=== PATIENT | female | born 1980 | race Caucasian/White ===

== ENCOUNTER 2017-01-31 22:27 | Emergency (ER) | payer OTHER ==
[2017-01-31 22:58] VITALS: RESP 18
[2017-01-31 23:52] LABS: Appearance,Urine Clear (Clear); Bilirubin,Urine Negative (Negative); Glucose,Urine (UA) Negative (Negative); Ketones,Urine Negative (Negative); Leukocyte Esterase,Urine Negative (Negative); Nitrite,Urine Negative (Negative); PH, Urine 5.5 (5.0-8.0); Protein,Urine Trace (Negative); Specific Gravity,Urine 1.026 (1.001-1.035); UA Billing (MACRO vs. MICRO) CHEM; Urobilinogen,Urine <2.0 mg/dL (<2.0)
[2017-02-01] MEDS ORDERED: FLUCONAZOLE 150 MG TAB PO STA (00:07)
--- NOTE | 2017-02-01 00:09 | ED ---
General Adult HPI - General Chief complaint: Urogenital Stated complaint: Female Time Seen by Provider: 01/31/17 23:02 Source: patient, RN notes reviewed, old records reviewed Mode of arrival: ambulatory Limitations: no limitations - History of Present Illness Initial comments: This is a 36-year-old male female to the ER for evaluation. Patient coming in for evaluation of symptoms related to [place] infection. Patient states his itching and some burning in her vaginal area. Denies any chance of STD. Denies bleeding. Denies . No bowel pain no fevers. Patient does have prior history of these infections states this feels similar. - Related Data Home Medications Medication Instructions Recorded Confirmed No Known Home Medications [No 01/31/17 01/31/17 Known Home Medications] Allergies Allergy/AdvReac Type Severity Reaction Status Date / Time No Known Allergies Allergy Verified 01/31/17 22:58 Review of Systems ROS Statement: Those systems with pertinent positive or pertinent negative responses have been documented in the HPI. ROS Other: All systems not noted in ROS Statement are negative. Past Medical History Past Medical History: No Reported History History of Any Multi-Drug Resistant Organisms: None Reported Past Surgical History: No Surgical Hx Reported Past Psychological History: No Psychological Hx Reported Smoking Status: Current every day smoker Past Alcohol Use History: None Reported Past Drug Use History: None Reported General Exam Limitations: no limitations General appearance: alert, in no apparent distress Head exam: Present: atraumatic, normocephalic, normal inspection Eye exam: Present: normal appearance, PERRL, EOMI. Absent: scleral icterus, conjunctival injection, periorbital swelling ENT exam: Present: normal exam, mucous membranes moist Neck exam: Present: normal inspection. Absent: tenderness, meningismus, lymphadenopathy Respiratory exam: Present: normal lung sounds bilaterally. Absent: respiratory distress, wheezes, rales, rhonchi, stridor Cardiovascular Exam: Present: regular rate, normal rhythm, normal heart sounds. Absent: systolic murmur, diastolic murmur, rubs, gallop, clicks GI/Abdominal exam: Present: soft, normal bowel sounds. Absent: distended, tenderness, guarding, rebound, rigid Extremities exam: Present: normal inspection, full ROM, normal capillary refill. Absent: tenderness, pedal edema, joint swelling, calf tenderness Back exam: Present: normal inspection Neurological exam: Present: alert, oriented X3, CN II-XII intact Psychiatric exam: Present: normal affect, normal mood Skin exam: Present: warm, dry, intact, normal color. Absent: rash Course Vital Signs 01/31/17 22:54 Temperature 99.1 F Pulse Rate 68 Respiratory 18 Rate Blood Pressure 116/69 O2 Sat by Pulse 100 Oximetry Medical Decision Making - Medical Decision Making 36 female year for evaluation of vaginal itching, swelling and likely yeast infection, history of same. Patient denying vaginal exam at this time. Urine negative for , we'll culture urine for infection discharged home - Lab Data Lab Results 01/31/17 01/31/17 Range/Units 22:55 22:55 Urine Color Yellow Urine Appearance Clear (Clear) Urine pH 5.5 (5.0-8.0) Ur Specific [place] 1.026 (1.001-1.035) Urine Protein Trace H (Negative) Urine Glucose (UA) Negative (Negative) Urine Ketones Negative (Negative) Urine Blood Negative (Negative) Urine Nitrite Negative (Negative) Urine Bilirubin Negative (Negative) Urine Urobilinogen <2.0 (<2.0) mg/dL Ur Leukocyte Esterase Negative (Negative) Urine HCG, Qual Not Detected (Not Detectd) Disposition Clinical Impression: Vaginitis, Candidiasis of vagina Disposition: HOME SELF-CARE Condition: Good Instructions: Vulvovaginal Candidiasis (ED) Referrals: None,Stated [Primary Care Provider] - 1-2 days
[2017-02-01 00:23] VITALS: BP 120/62; PULSE 72; TEMP 97.8
== END 2017-02-01 00:32 | disposition home or self-care (01) ==
LOC: EC 22:27
DX: B37.3 Candidiasis of vulva and vagina (principal); F17.200 Nicotine dependence, unspecified, uncomplicated
CPT/HCPCS: 81003; 81025; 87086; 87491; 87591; 99284

== ENCOUNTER 2017-09-10 22:40 | Emergency (ER) | payer OTHER ==
[2017-09-10 23:03] VITALS: TEMP 98.5
[2017-09-10] MEDS ORDERED: ACETAMINOPHEN TAB 325 MG TAB PO STA (23:43)
--- NOTE | 2017-09-10 23:46 | ED ---
General Adult HPI - General Chief complaint: Vaginal Bleeding Stated complaint: 11 wk preg and bleeding Time Seen by Provider: 09/10/17 23:29 Source: patient Mode of arrival: ambulatory Limitations: no limitations - History of Present Illness Initial comments: Lucy is a female currently 11 weeks with a single intrauterine confirmed on outpatient ultrasound who presents the emergency department today for evaluation of vaginal bleeding and cramping. Patient reports that yesterday evening she developed some vaginal bleeding, she reports that it is been menstrual like with no large clots or products of conception being passed. Patient reports she has used 3 or 4 pads in the past 24 hours. She states that this evening she began having some cramping which concerned her so she came to the emergency department for evaluation. Patient does report that earlier in the week she had some vaginal discharge but she attributed this to the , she denies any vaginal itching or concern for sexual transmitted infection. Patient denies any dysuria, hematuria or urinary frequency. She denies any history of sexual transmitted infections. She has no history of abnormal Pap smears, ectopic pregnancies in the past. patient ports both of her previous children were delivered vaginally. She's never had any gynecologic surgeries. Patient reports her blood type is B- and that she has required program during her previous vaginal deliveries. Patient does report that her bleeding developed after sexual intercourse with her partner. - Related Data Previous Rx's Medication Instructions Recorded Cephalexin [Keflex] 500 mg PO Q6HR 7 Days #28 cap 09/11/17 Allergies Allergy/AdvReac Type Severity Reaction Status Date / Time No Known Allergies Allergy Verified 09/10/17 23:02 Review of Systems ROS Statement: Those systems with pertinent positive or pertinent negative responses have been documented in the HPI. ROS Other: All systems not noted in ROS Statement are negative. Constitutional: Denies: fever, chills Respiratory: Denies: cough, dyspnea Cardiovascular: Denies: chest pain, palpitations Endocrine: Denies: fatigue Gastrointestinal: Denies: abdominal pain, nausea, vomiting Genitourinary: Reports: discharge. Denies: urgency, dysuria, frequency, hematuria Musculoskeletal: Denies: back pain Skin: Denies: rash, lesions Psychiatric: Denies: anxiety, depression Hematological/Lymphatic: Denies: easy bleeding, easy bruising Past Medical History Past Medical History: No Reported History History of Any Multi-Drug Resistant Organisms: None Reported Past Surgical History: No Surgical Hx Reported Past Psychological History: No Psychological Hx Reported Smoking Status: Current every day smoker Past Alcohol Use History: None Reported Past Drug Use History: None Reported General Exam Limitations: no limitations General appearance: alert, in no apparent distress Head exam: Present: atraumatic Eye exam: Present: normal appearance, PERRL ENT exam: Present: normal exam Neck exam: Present: normal inspection Respiratory exam: Absent: respiratory distress Cardiovascular Exam: Present: regular rate GI/Abdominal exam: Present: soft. Absent: distended, tenderness Extremities exam: Present: normal inspection Back exam: Present: normal inspection Neurological exam: Present: alert, oriented X3 Psychiatric exam: Present: normal affect, normal mood Skin exam: Present: warm, dry, intact, normal color. Absent: pallor Course Vital Signs 09/10/17 23:01 Temperature 98.5 F Pulse Rate 89 Respiratory 20 Rate Blood Pressure 114/72 O2 Sat by Pulse 100 Oximetry Medical Decision Making - Medical Decision Making patient was seen and evaluated, history was obtained from the patient and review of medical record Labs and ultrasound were ordered pelvic exam with a closed cervical os, minimal blood in the vaginal vault. No active vaginal bleeding. After pelvic exam patient reported that she changed her mind and now wanted testing for STI, though she is asymptomatic and does not want treatment. UA with gross contamination, will culture and treat US with single intrauterine with no acute findings. Discussed with patient need for OB follow up, pelvic rest until she is evaluated by her OB Rhogam ordered At the time of sign out patient was resting comfortably, awaiting rhogam. Patient care signed out to Elenita MARTIN who will discharge the patient after Rhogam - Lab Data Result diagrams: 09/11/17 00:19 Lab Results 09/11/17 09/11/17 09/11/17 Range/Units 00:01 00:19 00:19 WBC 12.6 H (3.8-10.6) k/uL RBC 4.54 (3.80-5.40) m/uL Hgb 12.8 (11.4-16.0) gm/dL Hct 39.2 (34.0-46.0) % MCV 86.3 (80.0-100.0) fL MCH 28.3 (25.0-35.0) pg MCHC 32.8 (31.0-37.0) g/dL RDW 12.4 (11.5-15.5) % Plt Count 270 (150-450) k/uL Neutrophils % 72 % Lymphocytes % 21 % Monocytes % 3 % Eosinophils % 2 % Basophils % 0 % Neutrophils # 9.1 H (1.3-7.7) k/uL Lymphocytes # 2.6 (1.0-4.8) k/uL Monocytes # 0.4 (0-1.0) k/uL Eosinophils # 0.3 (0-0.7) k/uL Basophils # 0.0 (0-0.2) k/uL Urine Color Yellow Urine Appearance Cloudy H (Clear) Urine pH 6.0 (5.0-8.0) Ur Specific [place] 1.012 (1.001-1.035) Urine Protein Trace H (Negative) Urine Glucose (UA) Negative (Negative) Urine Ketones Negative (Negative) Urine Blood Moderate H (Negative) Urine Nitrite Negative (Negative) Urine Bilirubin Negative (Negative) Urine Urobilinogen <2.0 (<2.0) mg/dL Ur Leukocyte Esterase Small H (Negative) Urine RBC 2 (0-5) /hpf Urine WBC 7 H (0-5) /hpf Ur Squamous Epith Cells 18 H (0-4) /hpf Amorphous Sediment Rare H (None) /hpf Urine Bacteria Rare H (None) /hpf Hyaline Casts 3 H (0-2) /lpf Urine Mucus Few H (None) /hpf Trichomonas Ag (Rapid) (Negative) Blood Type B Negative Blood Type Recheck B Neg 09/11/17 Range/Units 01:00 WBC (3.8-10.6) k/uL RBC (3.80-5.40) m/uL Hgb (11.4-16.0) gm/dL Hct (34.0-46.0) % MCV (80.0-100.0) fL MCH (25.0-35.0) pg MCHC (31.0-37.0) g/dL RDW (11.5-15.5) % Plt Count (150-450) k/uL Neutrophils % % Lymphocytes % % Monocytes % % Eosinophils % % Basophils % % Neutrophils # (1.3-7.7) k/uL Lymphocytes # (1.0-4.8) k/uL Monocytes # (0-1.0) k/uL Eosinophils # (0-0.7) k/uL Basophils # (0-0.2) k/uL Urine Color Urine Appearance (Clear) Urine pH (5.0-8.0) Ur Specific [place] (1.001-1.035) Urine Protein (Negative) Urine Glucose (UA) (Negative) Urine Ketones (Negative) Urine Blood (Negative) Urine Nitrite (Negative) Urine Bilirubin (Negative) Urine Urobilinogen (<2.0) mg/dL Ur Leukocyte Esterase (Negative) Urine RBC (0-5) /hpf Urine WBC (0-5) /hpf Ur Squamous Epith Cells (0-4) /hpf Amorphous Sediment (None) /hpf Urine Bacteria (None) /hpf Hyaline Casts (0-2) /lpf Urine Mucus (None) /hpf Trichomonas Ag (Rapid) Negative (Negative) Blood Type Blood Type Recheck Disposition Clinical Impression: Vaginal bleeding Disposition: HOME SELF-CARE Condition: Good Instructions: Threatened Miscarriage (ED) Prescriptions: Cephalexin [Keflex] 500 mg PO Q6HR 7 Days #28 cap Referrals: None,Stated [Primary Care Provider] - 1-2 days Roma Guzmán DO [Doctor of Osteopathic Medicine] - 1-2 days
[2017-09-11 00:17] LABS: Amorphous Sediment,Urine Rare /hpf; Appearance,Urine Cloudy (Clear); Bacteria,Urine Rare /hpf; Bilirubin,Urine Negative (Negative); Blood,Urine Moderate (Negative); Color,Urine Yellow; Glucose,Urine (UA) Negative (Negative); Hyaline Casts,Urine 3 /lpf (0-2); Ketones,Urine Negative (Negative); Leukocyte Esterase,Urine Small (Negative); Mucus,Urine Few /hpf; Nitrite,Urine Negative (Negative); Protein,Urine Trace (Negative); RBC,Urine 2 /hpf (0-5); Specific Gravity,Urine 1.012 (1.001-1.035); Squamous Epithelial Cell,Urine 18 /hpf (0-4); Urobilinogen,Urine <2.0 mg/dL (<2.0); WBC,Urine 7 /hpf (0-5)
[2017-09-11 00:37] LABS: Basophils % (A) 0 %; Eosinophils # (A) 0.3 k/uL (0-0.7); Eosinophils % (A) 2 %; HCT 39.2 % (34.0-46.0); HGB 12.8 gm/dL (11.4-16.0); Lymphocytes # (A) 2.6 k/uL (1.0-4.8); Lymphocytes % (A) 21 %; MCH 28.3 pg (25.0-35.0); MCHC 32.8 g/dL (31.0-37.0); MCV 86.3 fL (80.0-100.0); Mean Platelet Volume 6.7; Monocytes # (A) 0.4 k/uL (0-1.0); Monocytes % (A) 3 %; Neutrophils # (A) 9.1 k/uL (1.3-7.7); Neutrophils % (A) 72 %; Platelet Count 270 k/uL (150-450); RBC 4.54 m/uL (3.80-5.40); RDW 12.4 % (11.5-15.5); WBC 12.6 k/uL (3.8-10.6)
--- NOTE | 2017-09-11 01:02 | US ---
EXAMINATION TYPE: US OB <= 14 wk fetus DATE OF EXAM: 09/11/2017 COMPARISON: NONE CLINICAL HISTORY: Pain. Bleeding EXAM PERFORMED: Transabdominal (TA) EXAM MEASUREMENTS: GESTATIONAL AGE / DATING Physician Established: Not yet established ) Dates by LMP: LMP unknown Dates by First Scan: No previous this is first scan Dates by Current Scan for: (11 weeks/3 days) EDC: 03/30/2018 MATERNAL ANATOMY Uterus: 13.0 x 7.5 x 8.0 cm Left Ovary: Post CDS / Adnexa: wnl Presence of free fluid: No Presence of corpus luteal cyst: No Presence of subchorionic bleed: No GESTATION / SURVEY CRL: 4.6 (11 weeks/3 days) Heart Rate: 168 bpm Rhythm: IUP: Viable IUP Beta HcG (if available): Not available at this time Viable IUP 11w 3d DEBI 03/30/2018 HR 168 BPM IMPRESSION: The ultrasound gestational age is 11 weeks 3 days. I see no complicating process.
[2017-09-11] MEDS ORDERED: Rhogam IMMUNE GLOBULIN 1,500 UNIT/1 ML IM ONE (01:13)
[2017-09-11 03:20] VITALS: BP 103/56; PULSE 72; RESP 16
[2017-09-14 10:54] LABS: Chlamydia trachomatis rRNA Not detected (Not detected); Neisseria gonorrhoeae rRNA Not detected (Not detected)
== END 2017-09-11 03:24 | disposition home or self-care (01) ==
LOC: EC 22:40
DX: O20.9 Hemorrhage in early pregnancy, unspecified (principal); O26.891 Other specified pregnancy related conditions, first trimester; R10.2 Pelvic and perineal pain; O99.331 Smoking (tobacco) complicating pregnancy, first trimester; F17.200 Nicotine dependence, unspecified, uncomplicated; Z67.21 Type B blood, Rh negative; Z3A.11 11 weeks gestation of pregnancy
CPT/HCPCS: 99284; 90384; 96372; 36415; 86900; 86901; 87591; 87491; 85025; 86850; 81001; 84702; 87808; 87070; 87086; 76801; J2791; 87205